=== PATIENT | male | born 1975 | race Caucasian/White ===

== ENCOUNTER 2025-06-10 00:19 | Emergency (ER) | payer OTHER ==
[2025-06-10 01:29] LABS: INR-International Normal Ratio 1.1; PTT 26.0 sec (22.0-33.0); Prothrombin Time 11.9 sec (9.5-12.1)
[2025-06-10 01:34] LABS: ALT (SGPT) 58 U/L (Less than 45); AST (SGOT) 27 U/L (11-34); Albumin 2.3 g/dL (3.1-4.5); Alkaline Phosphatase 142 U/L (40-110); Anion Gap 14 mmol/L (10-20); BUN (Urea Nitrogen) 16 mg/dL (8.4-25.7); Bilirubin, Total 8.9 mg/dL (0.3-1.2); Calc. Creatinine Clearance 0 mL/min (70-130); Calcium 7.8 mg/dL (7.8-10.44); Carbon Dioxide 24 mmol/L (22-29); Chloride 99 mmol/L (98-107); Globulin 3.1 g/dL (2.4-3.5); Glucose 112 mg/dL (70-105); Lipase 31 U/L (8-78); Potassium 4.0 mmol/L (3.5-5.1); Sodium 133 mmol/L (136-145)
[2025-06-10 01:40] LABS: Troponin I Less than 0.010 ng/mL (< 0.028)
[2025-06-10 01:46] LABS: Hematocrit 38.8 % (38.8-50.0); Hemoglobin 13.7 g/dL (13.5-17.5); Mean Corpuscular Hemoglobin 29.5 pg (27.0-33.0); Mean Corpuscular Volume 83.4 fL (81.2-95.1); Platelet Count 193 10x3/uL (150-450); Red Blood Cell (RBC) Count 4.65 10x6/uL (4.32-5.72); White Blood Cell (WBC) Count 14.10 10x3/uL (3.5-10.5)
[2025-06-10 01:48] LABS: MDiff Complete? YES; Platelet Adequacy Comment Appears Adequate; RBC Morphology Within Normal Limits
[2025-06-10 05:26] LABS: Hep B Surf Ag Non-Reactive S/CO (NonReactive)
[2025-06-10] MEDS ORDERED: Ketorolac Tromethamine 30 MG (1 mL) VIAL ONE (05:40)
[2025-06-10] MEDS ORDERED: Iopamidol 370 76% 100 ML VIAL ONE (10:32)
[2025-06-10 12:23] LABS: Hep A IgM AB NONREACTIVE (NonReactive); Hep A IgM S/CO 0.47 S/CO (0-0.79); Hep B Core IgM Index 0.08 S/CO (0-0.79); Hep C IgG Ab NONREACTIVE S/CO (NonReactive); Hep C Index 0.07 S/CO (0-0.79)
== END 2025-06-10 08:10 | disposition short-term general hospital (02) ==
LOC: EEVIPCON 00:19 → CSHERS 00:19
DX: N30.00 Acute cystitis without hematuria (principal)
CPT/HCPCS: 36415; 71045; 74177; 76705; 80053; 80074; 83605; 83690; 83880; 84484; 85025; 85610; 85730; 93005; 96365; 96375; J1885; J2543; Q9967